=== PATIENT | male | born 1955 | race Caucasian/White ===

== ENCOUNTER 2024-02-04 21:19 | Emergency (ER) | payer MEDICARE ==
--- NOTE | 2024-02-04 21:24 | ERPHSYRPT ---
- History of Present Illness Time Seen by Provider: 02/04/24 21:24 Source: patient Exam Limitations: no limitations Physician History: This is a 68-year-old white male patient who was tripped by a cat on his way down the steps to the [employer] co[employer]. He did hit his head. He denies loss of consciousness. He denies neck pain. He is not on any anticoagulation therapy. Patient did get a ride to the emergency department. Patient takes no medications chronically and he has no known drug allergies. Occurred: just prior to arrival Severity: mild Head Injury Location: frontal (Just above the right eyebrow) Loss of Consciousness: no loss of consciousness Associated Symptoms: denies symptoms Allergies/Adverse Reactions: No Known Drug Allergies Allergy (Verified 02/04/24 21:38) Home Medications: No Reportable Medications [No Reported Medications] 02/04/24 [History] Travel Risk - International Travel Have you traveled outside of the country in past 3 weeks: No - Emerging Infectious Disease Are you exhibiting symptoms associated with any current EIDs: No - Review of Systems Constitutional: No Symptoms Eyes: No Symptoms Ears, Nose, & Throat: No Symptoms Respiratory: No Symptoms Cardiac: No Symptoms Abdominal/Gastrointestinal: No Symptoms Genitourinary Symptoms: No Symptoms Musculoskeletal: No Symptoms Skin: Other (Laceration above the right eyebrow) Neurological: No Symptoms Psychological: No Symptoms Endocrine: No Symptoms Hematologic/Lymphatic: No Symptoms Immunological/Allergic: No Symptoms All Other Systems: Reviewed and Negative - Past Medical History Neurological History: No Pertinent History Cardiac History: No Pertinent History Respiratory History: No Pertinent History Endocrine Medical History: No Pertinent History Musculoskeletal History: Arthritis - Nursing Vital Signs Nursing Vital Signs: Initial Vital Signs Temperature 98.5 F 02/04/24 21:24 Pulse Rate 71 02/04/24 21:24 Respiratory Rate 18 02/04/24 21:24 Blood Pressure 184/87 02/04/24 21:24 O2 Sat by Pulse Oximetry 95 02/04/24 21:24 Pain Scale Pain Intensity 3 - [place] Coma Score Best Eye Response ([place]): (4) open spontaneously Best Verbal Response ([place]): (5) oriented - Physical Exam General Appearance: no apparent distress, alert Head Injury: lacerations (3-1/2 cm transverse oriented skin laceration above the right eyebrow. No foreign body. Minimal skin edge oozing of blood), swelling (Right eyebrow), tenderness (Above right eyebrow) Eye Exam: bilateral eye: normal inspection, PERRL, EOMI ENT Exam: airway nml, nml ext.inspection, No evidence of ENT injury Neck Exam: supple, trachea midline, full range of motion, normal alignment, normal inspection Cardiovascular/Respiratory Exam: chest non-tender, no respiratory distress Gastrointestinal/Abdominal Exam: soft, non tender, no distention, no mass, no guarding, no ecchymosis, no organomegaly, no pulsatile mass, normal bowel sounds Rectal Exam: not done Back Exam: normal inspection, normal range of motion, No CVA tenderness, No vertebral tenderness Extremity Exam: non-tender, normal range of motion, normal inspection Mental Status Exam: alert, oriented 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 Skin laceration 3.5 cm transversely oriented above the right eyebrow) Lymphatic Exam: No adenopathy SpO2 Interpretation: normal O2 Delivery: Room Air Procedures - Laceration/Wound Repair Right Face Time of Procedure: 21:55 Wound Location: Right, face (Above right eyebrow) Wound Length (cm): 3.1 Wound's Depth, Shape: superficial, linear Wound Explored: clean (Wound was explored to the base with no foreign body present. Evaluation was performed in a bloodless field.) Irrigated: Yes Hibiclens Prep: Yes Anesthesia: 1% Lidocaine Volume Anesthetic (ccs): 8 Suture Size/Type: 4-0, prolene Number of Sutures: 5 Layer Closure?: No - Course Nursing assessment & vital signs reviewed: Yes Ordered Tests: Active Orders 24 hr Category Date Time Status Wound Care STAT Care 02/04/24 21:25 Active Medication Summary Discontinued Medications Generic Name Dose Route Start Last Admin Trade Name Freq PRN Reason Stop Dose Admin Bacitracin Zinc 0.9 each 02/04/24 21:25 02/04/24 21:28 Bacitracin Packet 1 Each Pckt TP 02/04/24 21:26 0.9 each STAT ONE Administration Bacitracin Zinc Confirm 02/04/24 21:25 Bacitracin Packet 1 Each Pckt Administered 02/04/24 21:26 Dose 1 each .ROUTE .STK-MED ONE Lidocaine HCl 5 ml 02/04/24 21:24 02/04/24 21:27 Lidocaine Hcl 1% 20 Ml Mdv 20 Ml Ml IJ 02/04/24 21:25 5 ml STAT ONE Administration Lidocaine HCl Confirm 02/04/24 21:25 Lidocaine Hcl 1% 20 Ml Mdv 20 Ml Ml Administered 02/04/24 21:26 Dose 5 ml .ROUTE .STK-MED ONE - Progress Progress: improved, re-examined Progress Note: 02/04/24 22:16 My medical decision making and the assignment of low to moderate complexity was based on review of the patient's past medical history, review patient medication list, review of the patient drug allergy list, history present illness and physical findings on examination. My recommended workup includes CT scan of the head, cervical spine and face. However, the patient declines to have the studies performed. I discussed with him the risks of bleeding, underlying frac tures, acute intracranial bleed or other acute process being present and worsening his condition and possibly even lead to . Patient understands and he will sign the refusal of care/treatment sheet. Counseled pt/family regarding: diagnosis, need for follow-up Medical Desision Making - Diagnostic Testing Diagnostic test were ordered, analyzed, and reviewed by me: No - Risk of complications Low Risk: Low risk of morbidity from additional dx testing or treatment - Departure Departure Disposition: Home Clinical Impression: Facial laceration Condition: Stable Critical Care Time: No Referrals: DOCTOR,NO FAMILY [Primary Care Provider] - Follow up/PCP as directed Additional Instructions: Keep the laceration repair site dry for 24 hours. After 24 hours, may allow the soap and water to flow over this repair site. Blot dry or use a assistant hairstylist to dry the site. After cleaning this site in 24 hours, and after drying, apply a thin layer of antibiotic ointment of choice to the area. Use Tylenol and ibuprofen for pain control. Suture removal in 5 to 7 days.
[2024-02-04] MEDS ORDERED: XYLOCAINE 1% HCL 20 ML MDV ONE (21:25)
[2024-02-04] MEDS ORDERED: BACIGUENT PACKET ONE (21:25)
[2024-02-04] MEDS: XYLOCAINE 1% HCL 20 ML MDV IJ ONE (21:27)
[2024-02-04] MEDS: BACIGUENT PACKET TP ONE (21:28)
[2024-02-04 21:39] VITALS: TEMP 98.5; O2SAT 95
[2024-02-04 22:16] VITALS: BP 143/93; PULSE 70; RESP 22
== END 2024-02-04 22:30 | disposition home or self-care (01) ==
LOC: ED 21:19
DX: S01.111A Laceration without foreign body of right eyelid and periocular area, initial encounter (principal); W10.8XXA Fall (on) (from) other stairs and steps, initial encounter
CPT/HCPCS: 12013; 96372; 99283; A9270-GY